=== PATIENT | female | born 1990 | race African-American/Black ===

== ENCOUNTER 2017-04-18 16:49 | Inpatient (IN) ==
[2017-04-18] MEDS ORDERED: LACTATED RINGERS 1,000 ML IV ONE (17:00)
[2017-04-18] MEDS ORDERED: FAMOTIDINE 20 MG/2 ML VIAL IV ONE (18:31)
[2017-04-18] MEDS ORDERED: CITRIC ACID/SODIUM CITRATE 30 ML UDCUP PO ONE (18:31)
[2017-04-18] MEDS ORDERED: CLINDAMYCIN INJ 900 MG in PREMIX 1 EACH IV ONE (18:34)
[2017-04-18] MEDS ORDERED: OXYTOCIN/LR 20 UNIT/1,000 ML BAG IV ONE ×3 (18:39→20:50)
[2017-04-18 18:46] LABS: Basophils % 0.2 % (0.0-0.8); Eosinophils # 0.1 10*3/uL (0.0-0.87); Eosinophils % 0.5 % (0.00-10.9); Hematocrit 36.2 VOL% (35.7-47.0); Hemoglobin 11.2 GM/DL (12.0-16.0); Immature Granulocytes % 0.9 %; Immature Granulocytes Absolute 0.11 #; Lymphocytes # 2.1 10*3/uL (1.4-4.0); Lymphocytes % 16.2 % (21.3-54.2); Mean Corpuscular HGB Conc 30.9 GM/DL (32-36); Mean Corpuscular Hemoglobin 26 PG (27-34); Mean Platelet Volume 11.6 FL (9.6-12.0); Monocytes # 1.5 10*3/uL (0.11-0.8); Monocytes % 11.6 % (1.7-12.7); NRBC # 0.02 10*3/uL; Neutrophils # 9.1 10*3/uL (1.4-7.4); Neutrophils % 70.6 % (38.7-73.9); Platelet Count 203 T/CUMM (130-400); Red Blood Count 4.31 MC/CUMM (3.8-5.5); White Blood Count 12.9 T/CUMM (4-12)
[2017-04-18] MEDS ORDERED: LACTATED RINGERS 1,000 ML IV SCH ×2 (19:00→21:00)
[2017-04-18 19:06] LABS: Albumin 2.7 G/DL (3.4-5.0); Bilirubin,Total 0.4 MG/DL (0.2-1.0); Osmolality,Calculated 270.7 MOS/KG (273-304); Potassium 4.3 MMOL/L (3.5-5.1); Total Protein 7.1 G/DL (6.4-8.3)
[2017-04-18 19:26] LABS: Apearance,Urine CLOUDY (Clear); Bilirubin,Urine Negative (Negative); Blood, Urine Large mg/dL (Negative); Glucose,Urine (UA) Negative (Negative); Ketones,Urine 20 mg/dL (Negative); Mucus,Urine Occasional /LPF (Occasional); Nitrite,Urine Negative (Negative); Protein,Urine 30 MG/DL; RBC,Urine 129 /HPF (0-4); Squamous Epithelial Cell,Urine Few /HPF (0-10); Urine Color Yellow (Yellow); Urine Specific Gravity 1.018 (1.001-1.035); WBC,Urine 199 /HPF (0-6)
[2017-04-18] MEDS ORDERED: ACETAMINOPHEN 325 MG TABLET PO PRN (20:50)
[2017-04-18] MEDS ORDERED: SIMETHICONE CHEW 80 MG TABLET PO PRN (20:50)
[2017-04-18] MEDS ORDERED: RHO(D) IMMUNE GLOBULIN 300 MCG SYRINGE IM ONE (20:50)
[2017-04-18] MEDS ORDERED: ONDANSETRON 4 MG/2 ML VIAL IV PRN (20:50)
[2017-04-18] MEDS ORDERED: ePHEDrine 50 MG/ML AMP ONE (21:00)
[2017-04-18] MEDS ORDERED: MORPHINE 10 MG/10 ML VIAL ONE (21:00)
[2017-04-18] MEDS ORDERED: BUPIVACAINE SPINAL 0.75% 2 ML AMP SPINAL ONE (21:01)
[2017-04-19] MEDS: DOCUSATE SODIUM 100 MG CAPSULE PO SCH ×3 (03:54→21:20)
[2017-04-19] MEDS: CLINDAMYCIN INJ 900 MG in PREMIX 1 EACH IV SCH ×2 (04:21→12:06)
[2017-04-19 06:59] LABS: Basophils % 0.1 % (0.0-0.8); Eosinophils % 0.1 % (0.00-10.9); Hematocrit 31.7 VOL% (35.7-47.0); Hemoglobin 10.4 GM/DL (12.0-16.0); Immature Granulocytes % 0.6 %; Lymphocytes # 1.6 10*3/uL (1.4-4.0); Lymphocytes % 9.1 % (21.3-54.2); Mean Corpuscular HGB Conc 32.8 GM/DL (32-36); Mean Corpuscular Hemoglobin 27 PG (27-34); Mean Corpuscular Volume 80.7 FL (87-102); Mean Platelet Volume 11.2 FL (9.6-12.0); Monocytes # 1.6 10*3/uL (0.11-0.8); Monocytes % 9.5 % (1.7-12.7); Neutrophils # 13.9 10*3/uL (1.4-7.4); Neutrophils % 80.6 % (38.7-73.9); Platelet Count 165 T/CUMM (130-400); Red Blood Count 3.93 MC/CUMM (3.8-5.5); Red Cell Distribution Width 13.9 % (9.3-17.3); White Blood Count 17.2 T/CUMM (4-12)
[2017-04-19] MEDS: MAGNESIUM HYDROXIDE SUSP 30 ML UDCUP PO PRN (08:49)
[2017-04-19] MEDS: IBUPROFEN 800 MG TABLET PO PRN ×2 (08:50→19:36)
[2017-04-19] MEDS: MULTIVITAMIN (PRENATAL) TABLET PO SCH (09:36)
[2017-04-19 11:57] LABS: Basophils % 0.2 % (0.0-0.8); Eosinophils % 0.1 % (0.00-10.9); Hematocrit 30.4 VOL% (35.7-47.0); Hemoglobin 10.3 GM/DL (12.0-16.0); Immature Granulocytes % 0.7 %; Immature Granulocytes Absolute 0.12 #; Lymphocytes # 1.4 10*3/uL (1.4-4.0); Lymphocytes % 7.7 % (21.3-54.2); Mean Corpuscular HGB Conc 33.9 GM/DL (32-36); Mean Corpuscular Hemoglobin 27 PG (27-34); Mean Platelet Volume 11.5 FL (9.6-12.0); Monocytes # 1.9 10*3/uL (0.11-0.8); Monocytes % 10.2 % (1.7-12.7); Neutrophils # 14.9 10*3/uL (1.4-7.4); Neutrophils % 81.1 % (38.7-73.9); Platelet Count 178 T/CUMM (130-400); Red Blood Count 3.85 MC/CUMM (3.8-5.5); Red Cell Distribution Width 13.9 % (9.3-17.3); White Blood Count 18.4 T/CUMM (4-12)
[2017-04-20] MEDS: MULTIVITAMIN (PRENATAL) TABLET PO SCH (09:20)
[2017-04-20] MEDS: DOCUSATE SODIUM 100 MG CAPSULE PO SCH ×2 (09:20→20:56)
[2017-04-20] MEDS: MAGNESIUM HYDROXIDE SUSP 30 ML UDCUP PO PRN (15:28)
[2017-04-20] MEDS ORDERED: WITCH HAZEL PADS 100/JAR TOP PRN (20:35)
[2017-04-20] MEDS ORDERED: HYDROCORTISONE 2.5% RECTAL CREAM 30 GM TUBE TOP PRN (20:35)
[2017-04-21] MEDS: DOCUSATE SODIUM 100 MG CAPSULE PO SCH (08:37)
[2017-04-21] MEDS: MULTIVITAMIN (PRENATAL) TABLET PO SCH (08:37)
[2017-04-21 08:47] VITALS: BP 126/76
[2017-04-21] MEDS ORDERED: DIPH/TET/ACEL PERT BOOSTER VACCINE 0.5 ML VIAL IM ONE (10:58)
== END 2017-04-21 13:40 | disposition home or self-care (01) | DRG 540 ==
LOC: N.LDOUT 16:49 → N.LD 16:50 → N.OB 04-19 00:05
PROVIDERS: ADMIT Obstetrics & Gynecology; ATTEND Obstetrics & Gynecology
PROC: LDCSECT (ICD-10-PCS; 2017-04-18 19:00)